=== PATIENT | male | born 2000 | race Caucasian/White ===

== ENCOUNTER 2019-06-07 13:17 | Emergency (ER) | payer OTHER | END 2019-06-07 15:32 | disposition home or self-care (01) | LOC: FTE 13:17 | DX: M79.671 Pain in right foot (principal); F17.210 Nicotine dependence, cigarettes, uncomplicated | CPT/HCPCS: 73630; 99283-25 ==

== ENCOUNTER 2019-06-11 18:33 | Emergency (ER) | payer OTHER ==
[2019-06-11] MEDS: CEFTRIAXONE 1 GM INJ IM (19:25)
[2019-06-11] MEDS: LIDOCAINE 1% (MDV) 20 ML INJ SC (19:25)
[2019-06-11] MEDS: TRIMETHOPRIM/SULFAMETHOX (DS) TAB PO (19:25)
== END 2019-06-11 19:56 | disposition home or self-care (01) ==
LOC: FTE 18:33
DX: L03.031 Cellulitis of right toe (principal)
CPT/HCPCS: 96372; 99284-25